=== PATIENT | female | born 1965 | race Caucasian/White ===

== ENCOUNTER → 2020-03-08 | Outpatient (CLI) | payer OTHER | LOC: MC.RAD 16:44 | DX: Z12.31 Encounter for screening mammogram for malignant neoplasm of breast (principal) ==

== ENCOUNTER → 2021-04-03 | Outpatient (CLI) | payer OTHER ==
[~2021-04-03] MED LIST: ASPI325T6 PO; CELEBREX 200MG200 MG PO; FOLIC ACID 40400 MCG PO; GLUCOPHAGE500 MG/TAB PO; IRON TABLETS325 MG PO; NORCO 325 MG-7.1 TAB PO; SENOKOT S 50 MG1 TAB PO; ULTRAM 50MG TAB50 MG PO; VITAMIN C500 MG PO; VITAMIND3 5000 PO; ZYRTEC 10MG10 MG PO
== END ==
LOC: MC.RAD 14:25
DX: Z12.31 Encounter for screening mammogram for malignant neoplasm of breast (principal)

== ENCOUNTER 2021-04-10 06:42 | Day surgery (SDC) | payer OTHER ==
[2021-04-10] VITALS (10 sets, daily range): BP systolic 122–167; BP diastolic 76–107; PULSE 63–90; TEMP 97.3–98.8
[~2021-04-10] VITALS: Ht 167.6 cm; Wt 86.8 kg
[2021-04-10] MEDS ORDERED: GLUCOPHAGE500 MG/TAB PO (08:28)
[2021-04-10] MEDS ORDERED: VITAMIND3 5000 PO (08:29)
[2021-04-10] MEDS ORDERED: VITAMIN C500 MG PO (08:30)
[2021-04-10] MEDS ORDERED: IRON TABLETS325 MG PO (08:30)
[2021-04-10] MEDS ORDERED: FOLIC ACID 40400 MCG PO (08:31)
[2021-04-10] MEDS ORDERED: ZYRTEC 10MG10 MG PO (08:32)
--- NOTE | 2021-04-10 09:00 | NUR ---
Wes Schuler WORSHIP PASTOR notified of elevated BP at 178/98. Order recieved for 10mg IV Labatelol.
--- NOTE | 2021-04-10 09:16 | NUR ---
10mg IV Labatelol given. BP 168/93.
--- NOTE | 2021-04-10 17:53 | NUR ---
Patient has continued to experience pain deep in her left hip. Patient has ambulated to the bathroom x2 with SBA using a walker.
--- NOTE | 2021-04-10 20:45 | NUR ---
SEE MAR FOR MS GIVEN FOR UNRELIEVED PAIN. LEVEL 5-6/10 TO LT HIP
--- NOTE | 2021-04-10 21:34 | NUR ---
SEE MAR JUS NORCO GIVEN FOR UNRELIEVED PAIN.
[2021-04-11 00:35] VITALS: BP 147/85; PULSE 89; TEMP 98
[2021-04-11 03:36] VITALS: BP 130/78; PULSE 83; TEMP 98.4
[2021-04-11 06:07] LABS: HEMOGLOBIN 11.6 g/dl (12.5-16.0)
[2021-04-11 06:11] LABS: HEMATOCRIT 36.3 % (37.0-47.0)
[2021-04-11 08:57] VITALS: BP 128/74; PULSE 88; TEMP 98.2
--- NOTE | 2021-04-11 09:17 | NUR ---
PT ASSESSED. NO COMPLAINTS OF DYSPNEA. COMPLAINS OF PAIN AND IS MEDICATED PER ORDERS. NO OTHER COMPLAINTS OR CONCERNS AT THIS TIME. CALL LIGHT WITHIN REACH
--- NOTE | 2021-04-11 11:33 | NUR ---
utility worker driver discuss discharge plan with the patient. Patient reports that she lives at home alone in . Patient reports that she is independent with her activities of daily living and that she has a cane that she uses prn. Patient reports that he PCP is Sheldon-RN LPN [facility] through the [facility]. Patient states she receives her medications through the [facility] but will utilize [facility] as well. She has a CPAP that she was gien but does not use it. Patient reports that she has a great support system and a good friend named Lyla that will be helping her. Patient states she has two adult children involved with the and live in other states. She states her son Yuri Antonio ([phone]) is her [employer] agent and that [facility] has a copy of it on file. Patient reports that she already has OP PT scheduled and that her first appointment is scheduled for Apr.17. Discharge plan: Home with friend support
[2021-04-11 12:00] VITALS: BP 131/72; PULSE 97; TEMP 98
[2021-04-11 15:33] VITALS: BP 127/74; PULSE 98; TEMP 98.4
--- NOTE | 2021-04-11 19:00 | NUR ---
RECEIVED CHANGE OF SHIFT REPORT FROM DAY SHIFT NURSE.
--- NOTE | 2021-04-11 20:00 | NUR ---
DENIES CHEST PAIN/SOA/NAUSEA AT THIS TIME. DENIES NUMBNESS/TINGLING TO EXTREMITIES. UP TO BATHROOM WITH SBA, USING [facility] WITH NO REPORTED PROBLEMS OR CONCERNS. REPORTS PAIN MEDS ARE MANAGING POST OP PAIN WELL.
[2021-04-11 20:15] VITALS: BP 118/67; PULSE 95; TEMP 98.6
[2021-04-12 00:27] VITALS: BP 115/61; PULSE 97; TEMP 97.8
[2021-04-12 03:30] VITALS: BP 121/81; PULSE 83; TEMP 97.8
--- NOTE | 2021-04-12 06:43 | NUR ---
CHANGE OF SHIFT REPORT GIVEN TO DAY SHIFT NURSE, MAXWELL EVERETT.
[2021-04-12 07:29] VITALS: BP 118/68; PULSE 91; TEMP 98.3
--- NOTE | 2021-04-12 09:18 | NUR ---
PT ASSESSED. NO COMPLAINTS OF DYPSNEA OR NAUSEA. COMPLAINS OF PAIN AND IS MEDICATED PER ORDERS. CALL LIGHT WITHIN REACH
[2021-04-12] MEDS ORDERED: ASPI325T6 PO (10:11)
[2021-04-12] MEDS ORDERED: NORCO 325 MG-7.1 TAB PO (10:12)
[2021-04-12] MEDS ORDERED: ULTRAM 50MG TAB50 MG PO (10:12)
[2021-04-12] MEDS ORDERED: CELEBREX 200MG200 MG PO (10:12)
[2021-04-12] MEDS ORDERED: SENOKOT S 50 MG1 TAB PO (10:13)
[2021-04-12 11:42] VITALS: BP 114/62; PULSE 87; TEMP 97.5
--- NOTE | 2021-04-12 15:46 | NUR ---
DISCHARGE INSTRUCTION COMPLETE INCLUDING MEDICATION AND FOLLOW UP TEACHING. IV REMOVED. NO COMPLAINTS OF PAIN OR DYSPNEA. NO SIGNS OR SYMPTOMS OF DISTRESS. CALL LIGHT WITHIN REACH
== END 2021-04-12 16:47 | disposition home or self-care (01) ==
LOC: SDCO 06:42 → EDSTATUS 11:00 → SURG 11:00 → SDCO 11:00 → SURG 13:30 → SDCO 04-12 16:47
PROVIDERS: Orthopaedic Surgery
DX: M16.12 Unilateral primary osteoarthritis, left hip (principal); I10 Essential (primary) hypertension; R73.03 Prediabetes; J30.2 Other seasonal allergic rhinitis; D64.9 Anemia, unspecified; G47.33 Obstructive sleep apnea (adult) (pediatric); Z91.19 Patient's noncompliance with other medical treatment and regimen; Z79.899 Other long term (current) drug therapy; Z79.84 Long term (current) use of oral hypoglycemic drugs
CPT/HCPCS: OP; A4314; C1713; C1776; J0690; J2250; J2270; J2405; J2704; J3010; J7120

== ENCOUNTER → 2022-09-03 | Outpatient (CLI) | payer OTHER | LOC: MC.RAD 06:53 | DX: Z12.31 Encounter for screening mammogram for malignant neoplasm of breast (principal) ==

== ENCOUNTER → 2023-12-16 | Outpatient (CLI) | payer OTHER | LOC: MC.RAD 14:33 | DX: Z12.31 Encounter for screening mammogram for malignant neoplasm of breast (principal) ==